=== PATIENT | male | born 1955 | race African-American/Black ===

== ENCOUNTER → 2016-06-14 | Outpatient (CLI) | payer OTHER ==
[2015-12-30 09:00] VITALS: BP 115/72
[~2016-06-14] MED LIST: AMLO5TAB2 PO; ASPI81TA44 PO; CLIN300C86 PO; METO25TA4 PO; MOME13HF2 IH; Nicotine TD; PRED20TA PO; RANI150C PO; RANO500T2 PO; TRIA1TAB3 PO; VENTOLIN HFA18 GM IH
--- NOTE | 2016-06-14 12:05 | RAD ---
CT chest without IV contrast History: Abnormal chest radiograph. Comparison: Chest radiograph December 27, 2015. Technique: Helical CT of the chest was performed without intravenous contrast. Axial, sagittal, and coronal reconstructions were obtained. One or more of the following individualized dose reduction techniques were utilized for the study: Automated exposure control Adjustment of mA and/or kV according to patient's size Use of iterative reconstruction technique. Findings: Thyroid is heterogeneous and appears enlarged. Trachea and mainstem bronchi appear patent. No mediastinal lymphadenopathy is seen. Thoracic aorta has normal caliber. No pericardial thickening is appreciated. Cardiac chambers appear appropriate in size. Mild paraseptal emphysematous changes of lungs are seen. No acute airspace disease is seen. No pneumothorax or pleural effusion is identified. There is partially calcified right lateral pleural thickening at the lower hemithorax. There is a small 5 mm soft tissue pulmonary nodule versus focal pleural thickening involving the left major fissure (axial image 45). Impression: 1. Mild paraseptal emphysema. 2. Partially calcified right pleural thickening at the lateral right lung base. 3. 5 mm soft tissue pulmonary nodule versus focal pleural thickening of the major fissure. Recommend Fleischner Society guidelines regarding follow-up. Fleischner Society recommendations for the follow up and management of nodules smaller than 8 mm detected incidentally at [facility], 2005 Nov;237(2):395-400 Note - Newly detected indeterminate nodule in persons 35 years of age or older. High-Risk Patient: (History of smoking or of other known risk factors) 4 mm or less: f/u CT at 12 months; if unchanged, no further f/u 4-6 mm: f/u at 6-12 months and 18-24 months if unchanged 6-8 mm: Initial f/u at 3-6 months, then 9-12 months and 24 months if unchanged 8 mm or greater: Same as Low-Risk patient
== END | disposition home or self-care (01) ==
LOC: CT 11:02
PROVIDERS: ATTEND Internal Medicine Pulmonary Disease
DX: R91.8 Other nonspecific abnormal finding of lung field (principal); E04.9 Nontoxic goiter, unspecified
CPT/HCPCS: 71250

== ENCOUNTER 2016-12-23 09:23 | Inpatient (IN) | payer OTHER ==
[~2016-12-23] VITALS: Ht 185.4 cm; Wt 66.0 kg
[~2016-12-23 09:23] MED LIST changes: +CLIN300C8 PO; -CLIN300C86 PO
[2016-12-23] MEDS ORDERED: IPRATRPIUM/ALBUTEROL 0.5/2.5MG 3 ML NEBU. NEB ONE (10:00)
[2016-12-23] MEDS ORDERED: predniSONE 20 MG TABLET PO ONE (10:00)
--- NOTE | 2016-12-23 10:01 | PHYS DOC ---
Past Medical History Past Medical History: Asthma, COPD, Hypertension, Other Additional Past Medical Histor: chronic Lt.shoulder pain Past Surgical History: Other Additional Past Surgical Histo: hernia,lt.middle finger,lt.knee Alcohol Use: Heavy Drug Use: Cocaine, Marijuana Social History Narrative: "ANYTHING I CAN" Adult General Chief Complaint Chief Complaint: SHORTNESS OF BREATH HPI HPI Patient is a 61 year old male presents to the emergency department wit a history of SOA and wheezing for the last 2-3 days. Patient states he has been using his nebulizer machine at home with minimal relief. Patient denies fever, chills, nausea or vomiting. Patient states he has hx of asthma. Review of Systems Review of Systems Constitutional: Denies fever or chills [] Eyes: Denies change in visual acuity, redness, or eye pain [] HENT: Denies nasal congestion or sore throat [] Respiratory: Denies cough. C/o wheezing and SOA Cardiovascular: No additional information not addressed in HPI [] GI: Denies abdominal pain, nausea, vomiting, bloody stools or diarrhea [] : Denies dysuria or hematuria [] Musculoskeletal: Denies back pain or joint pain [] Integument: Denies rash or skin lesions [] Neurologic: Denies headache, focal weakness or sensory changes [] Endocrine: Denies polyuria or polydipsia [] Current Medications Current Medications Current Medications Medications (Trade) Dose Ordered Sig/Bertha Start Time Stop Time Status Last Admin Dose Admin Albuterol Sulfate (Ventolin Neb Soln) 2.5 mg 1X ONCE 12/23/16 11:00 12/23/16 11:01 DC 12/23/16 11:11 2.5 MG Albuterol/ Ipratropium (Duoneb) 3 ml 1X ONCE 12/23/16 10:00 12/23/16 10:01 DC 12/23/16 10:05 3 ML Prednisone (Prednisone) 40 mg 1X ONCE 12/23/16 10:00 12/23/16 10:01 DC 12/23/16 10:07 40 MG Allergies Allergies Allergies Coded Allergies Type Severity Reaction Last Updated Verified Penicillins Allergy Severe SOB/STOPS BREATHING 03/19/15 Yes Physical Exam Physical Exam Constitutional: Well developed, well nourished, no acute distress, non-toxic appearance. [] HENT: Normocephalic, atraumatic, bilateral external ears normal, oropharynx moist, no oral exudates, nose normal. [] Eyes: PERRLA, EOMI, conjunctiva normal, no discharge. [] Neck: Normal range of motion, no tenderness, supple, no stridor. [] Cardiovascular:Heart rate regular rhythm, no murmur [] Lungs & Thorax: Bilateral breath sounds with wheezes noted throughout Skin: Warm, dry, no erythema, no rash. [] Back: No tenderness Extremities: No tenderness, no cyanosis, no clubbing, ROM intact, no edema. [] Neurologic: Alert and oriented X 3, normal motor function, normal sensory function, no focal deficits noted. [] Psychologic: Affect normal, judgement normal, mood normal. [] Current Patient Data Vital Signs Vital Signs Date Time Temp Pulse Resp B/P (MAP) Pulse Ox O2 Delivery O2 Flow Rate FiO2 12/23/16 11:11 92 Nasal Cannula 2.0 12/23/16 09:30 97.6 92 28 176/104 (128) 97.6 EKG EKG [] Radiology/Procedures Radiology/Procedures [] Course & Med Decision Making Course & Med Decision Making Pertinent Labs and Imaging studies reviewed. (See chart for details) Patient with O2 at 90% on RA patient was placed on O2 at 2 liters with saturation increased to 95% Patient has been provided with 2 respiratory treatments here in the emergency department. Provided with prednisone. Continues to have wheezes. Spoke with Dr. Ceja in regards to admission for this patient for respiratory treatments and steroids. He agrees with treatment regimen at this time. Patient will be placed in as inpatient. Orders have been placed into the computer. [] Dragon Disclaimer Dragon Disclaimer This electronic medical record was generated, in whole or in part, using a voice recognition dictation system. Departure Departure Impression: Primary Impression: Asthma exacerbation Disposition: ADMITTED INPATIENT Admitting Physician: Deacon Ceja Condition: STABLE Referrals: RASHID GONCALVES MD (PCP) YUN RAYA PROPERTY ADMINISTRATOR Dec 23, 2016 10:01
--- NOTE | 2016-12-23 10:23 | RAD ---
Indication wheezing. AP views of the chest were obtained. Comparison is made to an examination one year ago. There are probable background changes of emphysema or fibrosis. Scarring at the right costophrenic angle is noted similar to the previous exam. No consolidated pneumonia is seen. There is no pleural fluid or pneumothorax. There is a possible well-defined nodule in the left upper lobe. It may be artifactual. IMPRESSION: Chronic changes. No acute finding. Possible small nodule in the left lung. Follow-up imaging should be considered
[2016-12-23] MEDS ORDERED: ALBUTEROL SULFATE 2.5 MG/3 ML NEBU. NEB ONE (11:00)
[2016-12-23] MEDS ORDERED: ALBUTEROL SULFATE 2.5 MG/3 ML NEBU. NEB PRN (11:30)
[2016-12-23 11:58] LABS: BASO % 0 % (0-3); EOS % 1 % (0-3); HEMATOCRIT 41.5 % (39.0-53.0); HEMOGLOBIN 13.7 g/dL (13.0-17.5); LYMPH # 1.4 x10^3/uL (1.0-4.8); LYMPH % 10 % (24-48); MEAN CORPUSCULAR HEMOGLOBIN 31 pg (25-35); MEAN CORPUSCULAR HGB CONC 33 g/dL (31-37); MEAN CORPUSCULAR VOLUME 93 fL (79-100); MONO % 2 % (0-9); NEUT % 86 % (31-73); PLATELET COUNT 251 x10^3/uL (140-400); RED BLOOD COUNT 4.44 x10^6/uL (4.30-5.70); RED CELL DISTRIBUTION WIDTH 15.7 % (11.5-14.5); WHITE BLOOD COUNT 13.1 x10^3/uL (4.0-11.0)
[2016-12-23] MEDS: IPRATRPIUM/ALBUTEROL 0.5/2.5MG 3 ML NEBU. NEB SCH ×2 (12:00→16:11)
[2016-12-23 12:08] LABS: CALCIUM 9.4 mg/dL (8.5-10.1); CREATININE 1.2 mg/dL (0.7-1.3); GFR 74.7
[2016-12-23 12:10] VITALS: BP_SYST 132; BP_SYST 141; BP_DIAS 90; BP_DIAS 95
[2016-12-23 12:14] LABS: ALBUMIN 3.7 g/dL (3.4-5.0); ALBUMIN/GLOBULIN RATIO 1.1 (1.0-1.7); TOTAL BILIRUBIN 0.8 mg/dL (0.2-1.0); TOTAL PROTEIN 7.2 g/dL (6.4-8.2)
[2016-12-23 12:27] LABS: % EOS 1 % (0-5); PLT ESTIMATE ADEQUATE (ADEQUATE)
[2016-12-23] MEDS ORDERED: ALPR0.254 PO (12:48)
[2016-12-23] MEDS ORDERED: NICO1PAT21 TP (12:48)
[2016-12-23] MEDS ORDERED: HYDR-2758 PO (12:48)
[2016-12-23] MEDS ORDERED: PANT40TA5 PO (12:48)
[2016-12-23] MEDS ORDERED: NITR0.4T22 SL (12:48)
[2016-12-23] MEDS ORDERED: DIPH25CA58 PO (12:48)
[2016-12-23] MEDS ORDERED: METO25TA9 PO (12:48)
[2016-12-23 14:30] VITALS: BP 132/83
[2016-12-23] MEDS ORDERED: NITROGLYCERIN SUBLINGUAL 0.4 MG BOTTLE OF 25. SL PRN (14:45)
[2016-12-23] MEDS ORDERED: HYDROcodone/APAP 5/325MG 1 TAB TABLET PO PRN (14:45)
[2016-12-23] MEDS ORDERED: diphenhydrAMINE HCL 25 MG CAPSULE PO PRN (14:45)
[2016-12-23] MEDS: ENOXAPARIN 40 MG/0.4 ML SYRINGE. SQ SCH (15:38)
[2016-12-23] MEDS ORDERED: ALBUTEROL SULFATE 2.5 MG/3 ML NEBU. NEB SCH (16:00)
--- NOTE | 2016-12-23 18:49 | PDOC ---
Provider Note Provider Note H&P dictated # [id number] HAIM LEE MD Dec 23, 2016 18:49
[2016-12-23 19:00] VITALS: BP 129/85
[2016-12-23] MEDS: BUDESONIDE 0.5 MG/2 ML NEBU. NEB SCH (19:09)
[2016-12-23] MEDS: ALBUTEROL SULFATE 2.5 MG/3 ML NEBU. NEB PRN (19:09)
[2016-12-23] MEDS: RANOLAZINE 500 MG TAB.ER.12H PO SCH (20:49)
[2016-12-23] MEDS: ALPRAZolam 0.25 MG TABLET PO SCH (20:49)
[2016-12-23] MEDS ORDERED: FAMOTIDINE 20 MG TABLET. PO PRN (21:00)
--- NOTE | 2016-12-23 21:52 | HP ---
ADMIT DATE: 12/23/2016 HISTORY OF PRESENT ILLNESS: This is a 61-year-old -Citizen Of [place] male who presented to the Emergency Room because of shortness of breath and wheezing that he attributes to the weather. He has been trying to use his nebulizer at home, but getting little relief and quite dyspneic. He likes to sit outside in the garage for a little bit of time and then come inside. He thinks that likely is what contributed to his exacerbation. PAST MEDICAL HISTORY: COPD, asthma, depression, anxiety and hypertension. PAST SURGICAL HISTORY: Right knee laceration repair and normal left heart catheterization on 12/29/2015 without significant coronary artery disease. He has had a past lower right compound fracture of his leg and a hernia repair. FAMILY HISTORY: His mother is . His father is from cancer and he has a strong family history of hypertension and diabetes. SOCIAL HISTORY: He bums a few cigarettes, smokes occasionally. He is wearing a nicotine patch to help him quit. He lives with his spouse, but is disabled. He occasionally drinks, denies bingeing. ALLERGIES: HE HAS ALLERGY TO PENICILLIN. IT CAUSES SHORTNESS OF BREATH. HOME MEDICATIONS: He was started on a new blood pressure pill recently that was likely BiDil. It caused him to have a headache and he was told not to go out in the sun with it. He filled that at ____, but he has not been taking it routinely. He also has Ventolin HFA, alprazolam 0.25 mg t.i.d., aspirin 81 daily, Benadryl p.r.n. itching, hydrocodone APAP 5/325 one q. 6 hours p.r.n. pain, metoprolol 25 mg daily, Dulera 100/5 two puffs daily, Nicoderm CQ 21 mg patch daily, nitroglycerin 0.4 mg sublingual p.r.n. chest pain, pantoprazole 40 mg daily, ranitidine 150 mg b.i.d. and Ranexa 500 mg b.i.d. REVIEW OF SYSTEMS: GENERAL: He denies any chest pain. PULMONARY: As above. HEENT: He wears glasses and is able to see adequately with them, but he does not drive because of his underlying disabilities. He was seen in the office back in July with a foot ulcer on the right foot and had home health and it healed. He is ambulatory normally without assistance, despite his history of trauma. He denies nausea, vomiting or change in bowels. He has not had any urinary tract symptoms. Muscles are positive for cramping that has been occurring quite frequently here lately. PHYSICAL EXAMINATION: VITAL SIGNS: Blood pressure is a little elevated at 141/95, pulse is 80, respiratory rate is 20, oxygen on 2 liters nasal cannula is 96%. HEENT: He is wearing his glasses and sees adequately with them on, able to watch TV. Ocular muscles are intact. Mucous membranes are moist. NECK: Supple, no oral lesions are noted. HEART: Regular rate and rhythm. LUNGS: Some wheezes on the left side anteriorly with expiration are noted, but otherwise are clear. ABDOMEN: Soft, nondistended, nontender. EXTREMITIES: He moves them all well without any significant abnormal range of motion. He is ambulatory with a normal gait. His muscles are nontender to palpate. There are no joint effusions. There is no bruising or skin lesions. NEUROLOGIC: He is alert and oriented with a normal mood and affect and he is not in any respiratory distress at this time. He is wearing nasal cannula oxygen and has a peripheral IV in his right arm that does cause some discomfort when he bends that arm ____ antecubital fossa. LABORATORY DATA: White count is 13.1, hemoglobin is 13.7, hematocrit 41.5, platelets 251. Chemistries, electrolytes are normal including his CO2 and his anion gap. His BUN is 13, creatinine is 1.2 with an EGFR of 74, calcium is 9.4. Liver enzymes are normal. Proteins are normal. Chest x-ray shows possible small nodule in the left lung and recommends followup imaging. There are some background changes of emphysema/fibrosis. There is some scarring at the right costophrenic angle that is similar to previous exam. The nodule appears to be in the left upper lobe and may be artifactual. ASSESSMENT: 1. Acute chronic obstructive pulmonary disease exacerbation. 2. Chronic obstructive pulmonary disease. 3. Hypertension. 4. Depression/anxiety. PLAN: He is admitted. His breathing is already improved and will remain on his neb treatments, oxygen and home meds. He is getting Pulmicort nebulized also for steroid and he may need that at home. We will continue his nicotine patch and avoid smoking. His blood pressure will be monitored. We may need to resume his new medication if we can confirm its name. W Massiel LEE MD DR: BELLA/albino JOB#: [id number] / [id number]
[2016-12-23 23:00] VITALS: BP 139/89
[2016-12-24] MEDS: IPRATRPIUM/ALBUTEROL 0.5/2.5MG 3 ML NEBU. NEB SCH ×4 (00:25→19:38)
--- NOTE | 2016-12-24 00:58 | ACF ---
Admission Forms Criteria ASTHMA Clinical Indications for Admission to Inpatient Care (Place 'X' for any and all applicable criteria): Admission is indicated for ANY ONE of the following (1)(2)(3)(4)(5): [ ]I. Absent or markedly diminished breath sounds (silent chest) [ ]II. Oxygen saturation < 92% [ ]III. PaCO2 = / > 42 mm Hg (5.6 kPa) [ ]IV. Peak expiratory flow rate < 40% of predicted or personal best after treatment. [ ]V. Peak expiratory flow rate < 33% of predicted or personal before after treatment [ ]. Change in mental status [ ]VII. Ventilatory support required [ ]VIII. PaO2 < 60 mm Hg (8.0 kPa) [ ]IX. Cyanosis [ ]X. Cardiac dysrhythmia (e.g., bradycardia) [ ]XI. Hemodynamic instability [ ]XII. Radiographic evidence of complication requiring inpatient treatment (e.g., pneumonia, pneumothorax) [X]XIII. Inpatient admission required rather than observation care (also use Asthma: Observation Care guideline as appropriate) because of ANY ONE of the following: [ ]a) Respiratory finding that is severe or persistent (eg, dyspnea, tachypnea, accessory muscle use) [ ]b) Airflow measurements less than 60% of predicted or personal best that persist (e.g., over 24 hours) or worsen despite treatments [X]c) Supplemental oxygen or respiratory treatments for over 24 hours that are performable only in acute inpatient setting [ ]d) Other condition, treatment or monitoring requiring inpatient admission. Extended stay beyond goal length of stay may be needed for (26)(27)(28): [ ]a) Severe respiratory failure (23) (29) (30) [ ]b) Secondary causes and complications (25) [ ]c) Status asthmaticus [ ]d) Chronic obstructive asthma [ ]e) Older patients (29) [ ]f) Slow resolution [ ]g) Clinically significant exacerbation of comorbidities (eg, aur[place]. heart failure, atrial fibrillation) The original [employer] content created by [employer] has been revised. The portions of the content which have been revised are identified through the use of italic text or in bold, and [facility] [employer] has neither reviewed nor approved the modified material. All other unmodified content is copyright [employer] [facility] Please see references footnoted in the original [facility] edition 2016 Admission Criteria Met?: Yes SHAHLA SINHA Dec 24, 2016 00:58
[2016-12-24 03:00] VITALS: BP 141/85
[2016-12-24 05:08] LABS: BASO % 1 % (0-3); EOS % 2 % (0-3); HEMATOCRIT 41.1 % (39.0-53.0); HEMOGLOBIN 13.4 g/dL (13.0-17.5); LYMPH % 28 % (24-48); MEAN CORPUSCULAR HEMOGLOBIN 31 pg (25-35); MEAN CORPUSCULAR HGB CONC 33 g/dL (31-37); MEAN CORPUSCULAR VOLUME 94 fL (79-100); MONO % 8 % (0-9); NEUT % 61 % (31-73); PLATELET COUNT 225 x10^3/uL (140-400); RED BLOOD COUNT 4.37 x10^6/uL (4.30-5.70); RED CELL DISTRIBUTION WIDTH 15.6 % (11.5-14.5); WHITE BLOOD COUNT 7.1 x10^3/uL (4.0-11.0)
[2016-12-24 05:36] LABS: CALCIUM 9.5 mg/dL (8.5-10.1); CREATININE 1.1 mg/dL (0.7-1.3); GFR 82.6; POTASSIUM 3.9 mmol/L (3.5-5.1)
[2016-12-24 07:01] VITALS: BP 140/97
[2016-12-24] MEDS: BUDESONIDE 0.5 MG/2 ML NEBU. NEB SCH ×2 (07:44→19:39)
[2016-12-24] MEDS: ASPIRIN CHEWABLE 81 MG TABLET. PO SCH (08:10)
[2016-12-24] MEDS: PANTOPRAZOLE 40 MG TABLET.DR. PO SCH (08:10)
[2016-12-24] MEDS: RANOLAZINE 500 MG TAB.ER.12H PO SCH ×2 (08:10→20:29)
[2016-12-24] MEDS: ALPRAZolam 0.25 MG TABLET PO SCH ×3 (08:11→20:30)
[2016-12-24] MEDS: METOPROLOL SUCC 24HR ER 25 MG TAB.ER.24H. PO SCH (08:11)
[2016-12-24] MEDS: NICOTINE 21MG PATCH. TD SCH (08:11)
[2016-12-24] MEDS ORDERED: predniSONE 20 MG TABLET PO ONE (09:00)
[2016-12-24 11:01] VITALS: BP 140/88
[2016-12-24] MEDS: ENOXAPARIN 40 MG/0.4 ML SYRINGE. SQ SCH (14:44)
[2016-12-24 15:00] VITALS: BP 136/89
[2016-12-24] MEDS: ALBUTEROL SULFATE 2.5 MG/3 ML NEBU. NEB PRN (16:13)
--- NOTE | 2016-12-24 18:10 | PDOC ---
PROGRESS NOTES Subjective Worse today, more wheezing, muscle pain and crams better though, minimal activity but slept well overnight Objective Afebrile General: tired, A&O Heart: RRR, no M Lungs: bilateral wheezes Abd: soft, ND/NT Ext: no C/C/E skin: good turgor Vital Signs Vital Signs Date Time Temp Pulse Resp B/P (MAP) Pulse Ox O2 Delivery O2 Flow Rate FiO2 12/24/16 16:14 Nasal Cannula 2.0 12/24/16 15:00 98.3 86 18 136/89 (105) 94 98.3 I & O Intake and Output 12/24/16 07:00 Intake Total 550 ml Balance 550 ml Intake Oral 550 ml # Voids 5 Assessment and Plan 1. Asthma exacerbation - cont neb tx, add solumedrol 2. Acute chronic obstructive pulmonary disease exacerbation - continue neb tx add solumedrol 3. Chronic obstructive pulmonary disease. 4. Hypertension. 5. Depression/anxiety. Problems: HAIM LEE MD Dec 24, 2016 18:10
[2016-12-24] MEDS ORDERED: predniSONE 10 MG TABLET PO ONE (18:30)
[2016-12-24 19:36] VITALS: BP 139/92
[2016-12-24 22:34] VITALS: BP 129/78
[2016-12-25] MEDS: IPRATRPIUM/ALBUTEROL 0.5/2.5MG 3 ML NEBU. NEB SCH ×3 (00:04→11:27)
[2016-12-25 02:13] VITALS: BP 158/114
[2016-12-25 07:00] VITALS: BP 146/84
[2016-12-25] MEDS: BUDESONIDE 0.5 MG/2 ML NEBU. NEB SCH (07:31)
[2016-12-25] MEDS: ALPRAZolam 0.25 MG TABLET PO SCH ×2 (08:00→12:59)
[2016-12-25] MEDS: ASPIRIN CHEWABLE 81 MG TABLET. PO SCH (08:00)
[2016-12-25] MEDS: NICOTINE 21MG PATCH. TD SCH ×2 (08:00→10:06)
[2016-12-25] MEDS: METOPROLOL SUCC 24HR ER 25 MG TAB.ER.24H. PO SCH (08:00)
[2016-12-25] MEDS: RANOLAZINE 500 MG TAB.ER.12H PO SCH (08:00)
[2016-12-25] MEDS: PANTOPRAZOLE 40 MG TABLET.DR. PO SCH (08:00)
[2016-12-25 10:42] LABS: ALBUMIN 3.7 g/dL (3.4-5.0); CALCIUM 9.2 mg/dL (8.5-10.1); CREATININE 1.1 mg/dL (0.7-1.3); GFR 82.6; POTASSIUM 4.4 mmol/L (3.5-5.1); TOTAL BILIRUBIN 0.2 mg/dL (0.2-1.0); TOTAL PROTEIN 7.5 g/dL (6.4-8.2)
[2016-12-25 11:00] VITALS: BP 133/94
[2016-12-25] MEDS: ENOXAPARIN 40 MG/0.4 ML SYRINGE. SQ SCH (13:01)
[2016-12-25] MEDS ORDERED: METH4TAB2 PO (14:03)
[2016-12-25] MEDS ORDERED: MOME13HF IH (14:03)
[2016-12-25] MEDS ORDERED: ALPR0.254 PO (14:03)
--- NOTE | 2016-12-25 14:09 | PDOC ---
Provider Note Provider Note discharge dictated #[id number] HAIM LEE MD Dec 25, 2016 14:09
--- NOTE | 2016-12-25 21:44 | DS ---
DATE OF DISCHARGE: 12/25/2016 ADMISSION DIAGNOSIS: Acute asthma exacerbation. DISCHARGE DIAGNOSIS: Acute asthma exacerbation. ASSOCIATED DIAGNOSES: 1. Asthma. 2. Chronic obstructive pulmonary disease. 3. Hypertension. 4. Gastroesophageal reflux disease. 5. History of substance abuse. 6. Mental illness. CONSULTS: None. PROCEDURES: None. HISTORY AND HOSPITAL COURSE: This is a 61-year-old -[place] male who presented to the Emergency Room because of worsening dyspnea despite home neb treatments. He has had Dulera at home 100/5 and was taking that. He had been out in the heat with his dog and that seemed to exacerbate his symptoms. His pulse ox in the Emergency Room was 90%. He does not normally use oxygen at home, does not have chronic respiratory failure. He was given Solu-Medrol and neb treatments and subsequently admitted. He was switched to budesonide nebulized along with his neb treatments and initially improved, but then started wheezing more. He was given a large dose of prednisone last evening that caused him some confusion overnight. He was also resumed on alprazolam while here for anxiety and it caused some drowsiness. His lungs are back to baseline. He is no longer wheezing. He is up and about ambulating without any shortness of breath. He has not produced any significant amounts of sputum. There is no discoloration to it today. He is afebrile and wanting to go home. He feels like he can stay ____ the heat and avoid being out with his dog and then anticipate future problems. PHYSICAL EXAMINATION: HEART: Regular. LUNGS: Clear. ABDOMEN: Soft. NEURO: He is alert and oriented now. He is up and about ambulating without any oxygen. DISCHARGE MEDICATIONS: He will be discharged home on new prescriptions, alprazolam 0.25 mg 1 daily at bedtime as needed, Medrol Dosepak #1 as directed, which he will start tomorrow, Dulera is increased to 200 mcg/5, 2 puffs b.i.d., he will continue his albuterol both nebulized and inhaled q.i.d. p.r.n. He will continue aspirin 81 mg daily, diphenhydramine 25 mg p.r.n., hydrocodone ____ 5/325 q.i.d. p.r.n., but he has not needed any here. Prescription was not written. Metoprolol succinate 25 mg daily, nicotine 21 mg patch daily, pantoprazole 40 mg daily, and Ranexa 500 mg b.i.d. DIET: Will be as tolerated. ACTIVITY: As tolerated. FOLLOWUP: He will follow up in the office with me or Dr. Osorio within 1-2 weeks. W Massiel LEE MD DR: BELLA/albino JOB#: [id number] / [id number]
== END 2016-12-25 16:30 | disposition home or self-care (01) | DRG 191 ==
LOC: ER 09:23 → 6 SOUTH 10:48
PROVIDERS: ADMIT Family Medicine; ATTEND Family Medicine
DX: J44.1 Chronic obstructive pulmonary disease with (acute) exacerbation (principal); J45.901 Unspecified asthma with (acute) exacerbation; F32.9 Major depressive disorder, single episode, unspecified; F41.9 Anxiety disorder, unspecified; I10 Essential (primary) hypertension; K21.9 Gastro-esophageal reflux disease without esophagitis; F17.200 Nicotine dependence, unspecified, uncomplicated; F19.10 Other psychoactive substance abuse, uncomplicated; F14.90 Cocaine use, unspecified, uncomplicated; Z82.49 Family history of ischemic heart disease and other diseases of the circulatory system; Z83.3 Family history of diabetes mellitus; Z88.0 Allergy status to penicillin; Z79.899 Other long term (current) drug therapy; Z79.1 Long term (current) use of non-steroidal anti-inflammatories (NSAID); Z79.82 Long term (current) use of aspirin
CPT/HCPCS: 36415; 71010; 80048; 80053; 85007; 85027; 94250; 94640; 94760; J1650; J7512; J7613; J7620; J7626; 99285-25; A6539

== ENCOUNTER → 2017-01-10 | Outpatient (CLI) | payer OTHER ==
[2016-12-25 11:00] VITALS: BP 133/94
[~2017-01-10] MED LIST changes: +ALPR0.254 PO; +DIPH25CA58 PO; +HYDR-2758 PO; +METH4TAB2 PO; +METO25TA9 PO; +MOME13HF IH; +NICO1PAT21 TP; +NITR0.4T22 SL; +PANT40TA5 PO
== END | disposition home or self-care (01) ==
LOC: PMGWOUND 08:55
PROVIDERS: ATTEND Emergency Medicine Undersea and Hyperbaric Medicine
DX: T81.31XD Disruption of external operation (surgical) wound, not elsewhere classified, subsequent encounter (principal); F41.9 Anxiety disorder, unspecified; J44.9 Chronic obstructive pulmonary disease, unspecified; I10 Essential (primary) hypertension; F14.90 Cocaine use, unspecified, uncomplicated; K21.9 Gastro-esophageal reflux disease without esophagitis; F32.9 Major depressive disorder, single episode, unspecified; J45.909 Unspecified asthma, uncomplicated; F19.10 Other psychoactive substance abuse, uncomplicated; Z88.0 Allergy status to penicillin; Z79.82 Long term (current) use of aspirin; Y83.8 Other surgical procedures as the cause of abnormal reaction of the patient, or of later complication, without mention of misadventure at the time of the procedure
CPT/HCPCS: 97597; 97598

== ENCOUNTER 2017-06-13 13:14 | Emergency (ER) | payer OTHER | END 2017-06-13 15:24 | disposition home or self-care (01) | LOC: ER 13:14 | DX: S63.502A Unspecified sprain of left wrist, initial encounter (principal); I10 Essential (primary) hypertension; F12.10 Cannabis abuse, uncomplicated; J44.9 Chronic obstructive pulmonary disease, unspecified; F14.10 Cocaine abuse, uncomplicated; F10.10 Alcohol abuse, uncomplicated; Z88.0 Allergy status to penicillin; X50.9XXA Other and unspecified overexertion or strenuous movements or postures, initial encounter; Y93.89 Activity, other specified; Y99.8 Other external cause status; Y92.89 Other specified places as the place of occurrence of the external cause | CPT/HCPCS: 29125; 73090; 73110; 99284-25 ==

== ENCOUNTER 2018-06-07 10:33 | Emergency (ER) | payer OTHER ==
[~2018-06-07] VITALS: Ht 185.4 cm; Wt 72.6 kg
[~2018-06-07 10:33] MED LIST changes: -AMLO5TAB2 PO; +AMLO5TAB7 PO; -ASPI81TA44 PO; +ASPI81TA59 PO; -HYDR-2758 PO; +HYDR-2761 PO; +IBUP-1060 PO; +METO-239 PO; -METO25TA9 PO; +RANI150T2 PO
[2018-06-07] MEDS ORDERED: IV NORMAL SALINE 1000ML BAG 1,000 ML IV SCH (10:51)
[2018-06-07] MEDS ORDERED: ASPIRIN CHEWABLE 81 MG TABLET. PO ONE (11:00)
[2018-06-07] MEDS ORDERED: methylPREDNISolone SOD SUCC PF 125 MG/2 ML VIAL. IV ONE (11:00)
[2018-06-07] MEDS ORDERED: IPRATRPIUM/ALBUTEROL 0.5/2.5MG 3 ML NEBU. NEB ONE (11:00)
--- NOTE | 2018-06-07 11:08 | PHYS DOC ---
Past Medical History Past Medical History: Asthma, COPD, Hypertension, Other Additional Past Medical Histor: chronic Lt.shoulder pain Past Surgical History: Other Additional Past Surgical Histo: hernia,R middle finger,lt.knee,L FINGER Smoking: Cigarettes Alcohol Use: None Drug Use: Cocaine Adult General Chief Complaint Chief Complaint: FLU SYMPTOM HPI HPI Patient is a 63-year-old -Swiss male who presents to the emergency department for evaluation. he states that "I think I'm catching a cold". He states that for the past several days, he has had nasal congestion and a cough and some shortness of breath. He also reports some left lower chest discomfort, which is worse with coughing. This has been constant for the past 2 days. He states he has had similar discomfort in the past with coughing. He denies a prior history of coronary artery disease. He does admit to a history of cocaine use, but states he has not used cocaine in over a week. He has not had any exertional chest pain. He denies any pleuritic chest pain. He has not had any fevers. His cough has been mostly nonproductive. There are no alleviating or exacerbating factors to his symptoms otherwise. Review of Systems Review of Systems Constitutional: Denies fever or chills [] Eyes: Denies change in visual acuity, redness, or eye pain [] HENT: Denies nasal congestion or sore throat [] Respiratory: Reports nonproductive cough and shortness of breath[] Cardiovascular: No additional information not addressed in HPI [] GI: Denies abdominal pain, nausea, vomiting, bloody stools or diarrhea [] : Denies dysuria or hematuria [] Musculoskeletal: Denies back pain or joint pain [] Integument: Denies rash or skin lesions [] Neurologic: Denies headache, focal weakness or sensory changes [] Endocrine: Denies polyuria or polydipsia [] All other systems were reviewed and found to be within normal limits, except as documented in this note. Current Medications Current Medications Current Medications Medications (Trade) Dose Ordered Sig/Bertha Start Time Stop Time Status Last Admin Dose Admin Albuterol/ Ipratropium (Duoneb) 3 ml 1X ONCE 06/07/18 11:00 06/07/18 11:01 DC 06/07/18 11:22 3 ML Aspirin (Children'S Aspirin) 324 mg 1X ONCE 06/07/18 11:00 06/07/18 11:01 DC 06/07/18 11:10 324 MG Methylprednisolone Sodium Succinate (SOLU-Medrol 125MG VIAL) 125 mg 1X ONCE 06/07/18 11:00 06/07/18 11:01 DC 06/07/18 11:10 125 MG Sodium Chloride 1,000 ml @ 1,000 mls/hr Q1H 06/07/18 10:51 06/07/18 11:50 DC 06/07/18 11:11 1,000 MLS/HR Allergies Allergies Allergies Coded Allergies Type Severity Reaction Last Updated Verified Penicillins Allergy Severe SOB/STOPS BREATHING 03/19/15 Yes Physical Exam Physical Exam PHYSICAL EXAM: CONSTITUTIONAL: Well developed, well nourished HEAD: normocephalic, atraumatic EENT: PERRL, EOMI. Conjunctivae normal color, sclerae non-icteric; moist mucous membranes. NECK: Supple, non-tender; no meningismus. LUNGS: There are scattered expiratory wheezes in all lung nair, with mildly diminished air movement, breathing even and unlabored. HEART: Regular rate and rhythm, no murmur CHEST: No deformity; non-tender ABDOMEN: The abdomen is soft, and non-tender, no masses or bruits. EXTREM: Normal ROM; no deformity, no calf tenderness. Normal pulses palpable in all extremities. There is no pedal edema. SKIN: No rash; no diaphoresis NEURO: Alert; normal speech and cognition; CN's grossly intact; strength grossly intact without focal deficit. BACK: No CVA TTP. Current Patient Data Vital Signs Vital Signs Date Time Temp Pulse Resp B/P (MAP) Pulse Ox O2 Delivery O2 Flow Rate FiO2 06/07/18 12:10 84 133/83 (100) 94 Room Air 06/07/18 10:44 97.6 18 97.6 Lab Values Laboratory Tests Test 06/07/18 10:40 06/07/18 10:47 06/07/18 11:50 Influenza Type A Antigen Negative (NEGATIVE) Influenza Type B Antigen Negative (NEGATIVE) White Blood Count 7.0 x10^3/uL (4.0-11.0) Red Blood Count 4.40 x10^6/uL (4.30-5.70) Hemoglobin 13.7 g/dL (13.0-17.5) Hematocrit 40.8 % (39.0-53.0) Mean Corpuscular Volume 93 fL (79-100) Mean Corpuscular Hemoglobin 31 pg (25-35) Mean Corpuscular Hemoglobin Concent 34 g/dL (31-37) Red Cell Distribution Width 14.8 % (11.5-14.5) H Platelet Count 260 x10^3/uL (140-400) Neutrophils (%) (Auto) 71 % (31-73) Lymphocytes (%) (Auto) 20 % (24-48) L Monocytes (%) (Auto) 6 % (0-9) Eosinophils (%) (Auto) 2 % (0-3) Basophils (%) (Auto) 1 % (0-3) Neutrophils # (Auto) 5.0 x10^3uL (1.8-7.7) Lymphocytes # (Auto) 1.4 x10^3/uL (1.0-4.8) Monocytes # (Auto) 0.4 x10^3/uL (0.0-1.1) Eosinophils # (Auto) 0.1 x10^3/uL (0.0-0.7) Basophils # (Auto) 0.1 x10^3/uL (0.0-0.2) Sodium Level 144 mmol/L (136-145) Potassium Level 3.8 mmol/L (3.5-5.1) Chloride Level 108 mmol/L (98-107) H Carbon Dioxide Level 26 mmol/L (21-32) Anion Gap 10 (6-14) Blood Urea Nitrogen 18 mg/dL (8-26) Creatinine 1.0 mg/dL (0.7-1.3) Estimated GFR (Cockcroft-Gault) 91.6 BUN/Creatinine Ratio 18 (6-20) Glucose Level 95 mg/dL (70-99) Calcium Level 9.0 mg/dL (8.5-10.1) Total Bilirubin 0.4 mg/dL (0.2-1.0) Aspartate Amino Transferase (AST) 11 U/L (15-37) L Alanine Aminotransferase (ALT) 18 U/L (16-63) Alkaline Phosphatase 89 U/L (46-116) Creatine Kinase 130 U/L (39-308) Creatine Kinase MB (Mass) 1.5 ng/mL (0.0-3.6) Creatine Kinase MB Relative Index 1.2 % (0-4) Troponin I Quantitative < 0.017 ng/mL (0.000-0.055) JT-Eis-X-Type Natriuretic Peptide 76 pg/mL (0-124) Total Protein 7.4 g/dL (6.4-8.2) Albumin 3.6 g/dL (3.4-5.0) Albumin/Globulin Ratio 0.9 (1.0-1.7) L Urine Color Yellow Urine Clarity Clear Urine pH 6.5 Urine Specific [place] 1.020 Urine Protein Negative mg/dL (NEG-TRACE) Urine Glucose (UA) Negative mg/dL (NEG) Urine Ketones (Stick) Negative mg/dL (NEG) Urine Blood Negative (NEG) Urine Nitrite Negative (NEG) Urine Bilirubin Negative (NEG) Urine Urobilinogen Dipstick 1.0 mg/dL (0.2 mg/dL) Urine Leukocyte Esterase Negative (NEG) Urine RBC Occ /HPF (0-2) Urine WBC Occ /HPF (0-4) Urine Squamous Epithelial Cells Occ /LPF Urine Bacteria 0 /HPF (0-FEW) Urine Mucus Mod /LPF Urine Opiates Screen Neg (NEG) Urine Methadone Screen Neg (NEG) Urine Barbiturates Neg (NEG) Urine Phencyclidine Screen Neg (NEG) Urine Amphetamine/Methamphetamine Neg (NEG) Urine Benzodiazepines Screen Neg (NEG) Urine Cocaine Screen Pos (NEG) Urine Cannabinoids Screen Pos (NEG) Urine Ethyl Alcohol Neg (NEG) Laboratory Tests 06/07/18 10:47 Laboratory Tests 06/07/18 10:47 EKG EKG [Normal sinus rhythm at a rate of 79 beats for minute, normal axis, normal intervals, poor anterior R-wave progression, lethargy hypertrophy is present, there are no acute ischemic ST/T changes.] Radiology/Procedures Radiology/Procedures [PROCEDURE: CHEST PA & LATERAL Two-view chest 06/07/2017 Clinical indications: Chest pain. COMPARISON: Chest 08/26/2017, CT chest 08/27/2017 FINDINGS: Cardiac and mediastinal silhouettes are stable. There is stable right basilar pleural thickening and pleural calcification. There is hyperexpansion of both lungs. No left pleural effusion. No pneumothorax or focal consolidation. IMPRESSION: 1. No acute cardiopulmonary abnormality. 2. Stable right costophrenic angle blunting and pleural calcification, may be due to pleural plaques from benign asbestos related pleural disease versus chronic pleural effusion with associated calcification. 3. Emphysema.] Course & Med Decision Making Course & Med Decision Making Pertinent Labs and Imaging studies reviewed. (See chart for details) [12:50 PM:Patient remains stable. Oxygen saturation is in the upper 90s on room air. I'm not highly suspicious of the patient's symptoms are related to a cardiac etiology, I suspect that he has bronchitis and upper respiratory infection with some wheezing related to his underlying asthma and cigarette use. I did discuss the possibility of further overnight observation to definitively rule out acute coronary syndrome with the patient does not think his symptoms are related to his heart either and declines further evaluation at this time. He expressed understanding of the limitation of an ER evaluation in definitively ruling out cardiac etiology, and the risks involved and undiagnosed cardiac syndrome. However the patient's symptoms are suspected to be respiratory in nature at this time. I discussed test results, the need for close follow-up, and return precautions.] Dragon Disclaimer Dragon Disclaimer This electronic medical record was generated, in whole or in part, using a voice recognition dictation system. Departure Departure Impression: Primary Impression: Bronchitis Additional Impressions: Upper respiratory infection Atypical chest pain Disposition: 01 HOME, SELF-CARE Condition: STABLE Referrals: Sylvia LEE MD (PCP) Patient Instructions: Acute Bronchitis, Asthma, Adult, Upper Respiratory Infection, Adult Scripts Albuterol Sulfate (PROAIR HFA INHALER) 8.5 Gm Hfa.aer.ad 1 PUFF INH PRN Q6HRS PRN for SHORTNESS OF BREATH, #1 INHALER 0 Refills Prov: MARY DANIELSON MD 06/07/18 Prednisone (PREDNISONE) 20 Mg Tablet 40 MG PO DAILY for 5 Days, #10 TAB Prov: MARY DANIELSON MD 06/07/18 Problem Qualifiers MARY DANIELSON MD Jun 07, 2018 11:08
[2018-06-07 11:25] LABS: BASO # 0.1 x10^3/uL (0.0-0.2); BASO % 1 % (0-3); EOS # 0.1 x10^3/uL (0.0-0.7); EOS % 2 % (0-3); HEMATOCRIT 40.8 % (39.0-53.0); HEMOGLOBIN 13.7 g/dL (13.0-17.5); LYMPH # 1.4 x10^3/uL (1.0-4.8); LYMPH % 20 % (24-48); MEAN CORPUSCULAR HEMOGLOBIN 31 pg (25-35); MEAN CORPUSCULAR HGB CONC 34 g/dL (31-37); MEAN CORPUSCULAR VOLUME 93 fL (79-100); MONO # 0.4 x10^3/uL (0.0-1.1); MONO % 6 % (0-9); NEUT % 71 % (31-73); PLATELET COUNT 260 x10^3/uL (140-400); RED CELL DISTRIBUTION WIDTH 14.8 % (11.5-14.5)
--- NOTE | 2018-06-07 11:29 | RAD ---
Two-view chest 06/07/2017 Clinical indications: Chest pain. COMPARISON: Chest 08/26/2017, CT chest 08/27/2017 FINDINGS: Cardiac and mediastinal silhouettes are stable. There is stable right basilar pleural thickening and pleural calcification. There is hyperexpansion of both lungs. No left pleural effusion. No pneumothorax or focal consolidation. IMPRESSION: 1. No acute cardiopulmonary abnormality. 2. Stable right costophrenic angle blunting and pleural calcification, may be due to pleural plaques from benign asbestos related pleural disease versus chronic pleural effusion with associated calcification. 3. Emphysema. Electronically signed by: Tremaine Malik MD (06/07/2018 11:25 AM) [id number]
[2018-06-07 11:34] LABS: GFR 91.6; POTASSIUM 3.8 mmol/L (3.5-5.1)
[2018-06-07 11:43] LABS: ALBUMIN 3.6 g/dL (3.4-5.0); ALBUMIN/GLOBULIN RATIO 0.9 (1.0-1.7); TOTAL BILIRUBIN 0.4 mg/dL (0.2-1.0); TOTAL PROTEIN 7.4 g/dL (6.4-8.2)
[2018-06-07 11:53] LABS: INFLUENZA A PATIENT NEGATIVE (NEGATIVE); INFLUENZA B PATIENT NEGATIVE (NEGATIVE)
[2018-06-07 12:08] LABS: BILIRUBIN,URINE NEGATIVE (NEG); CLARITY,URINE CLEAR; COLOR,URINE YELLOW; NITRITE,URINE NEGATIVE (NEG); PH,URINE 6.5; PROTEIN,URINE NEGATIVE (NEG-TRACE)
[2018-06-07 12:10] VITALS: BP 133/83
[2018-06-07 12:13] LABS: BARBITURATES NEG (NEG); BENZODIAZEPINES NEG (NEG); CANNABINOIDS POS (NEG); COCAINE POS (NEG); METHADONE NEG (NEG); OPIATES NEG (NEG); PHENCYCLIDINE NEG (NEG)
[2018-06-07 12:14] LABS: AMPHETAMINE/METHAMPHETAMINE NEG (NEG)
[2018-06-07 12:19] LABS: BACTERIA,URINE 0 /HPF (0-FEW); RBC,URINE OCC /HPF (0-2); SQUAMOUS EPITHELIAL CELL,UR OCC /LPF; WBC,URINE OCC /HPF (0-4)
[2018-06-07] MEDS ORDERED: PRED20TA PO (12:56)
[2018-06-07] MEDS ORDERED: ALBU2.5V8 INH (12:56)
--- NOTE | 2018-06-07 15:05 | EKG ---
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
== END 2018-06-07 13:08 | disposition home or self-care (01) ==
LOC: ER 10:33
DX: J40 Bronchitis, not specified as acute or chronic (principal); J06.9 Acute upper respiratory infection, unspecified; R07.89 Other chest pain; J44.9 Chronic obstructive pulmonary disease, unspecified; G89.29 Other chronic pain; I10 Essential (primary) hypertension; F17.210 Nicotine dependence, cigarettes, uncomplicated; Z88.0 Allergy status to penicillin
CPT/HCPCS: 36415; 71046; 80053; 80307; 81001; 82553; 83880; 84484; 85025; 87804; 93005; 94640; 96374; 99284; J2930; J7030; J7620

== ENCOUNTER → 2018-06-26 | Outpatient (CLI) | payer OTHER ==
[2018-06-07 12:10] VITALS: BP 133/83
[~2018-06-26] MED LIST changes: +ALBU2.5V8 INH
== END | disposition home or self-care (01) ==
LOC: PMGWOUND 08:03
PROVIDERS: ATTEND Emergency Medicine Undersea and Hyperbaric Medicine
DX: T81.31XD Disruption of external operation (surgical) wound, not elsewhere classified, subsequent encounter (principal); I11.0 Hypertensive heart disease with heart failure; I50.9 Heart failure, unspecified; E78.5 Hyperlipidemia, unspecified; G89.29 Other chronic pain; I25.2 Old myocardial infarction; J44.9 Chronic obstructive pulmonary disease, unspecified; Z87.891 Personal history of nicotine dependence; Z85.810 Personal history of malignant neoplasm of tongue; Y83.8 Other surgical procedures as the cause of abnormal reaction of the patient, or of later complication, without mention of misadventure at the time of the procedure
CPT/HCPCS: 99213

== ENCOUNTER 2018-12-13 15:54 | Emergency (ER) | payer MEDICAID, OTHER ==
[~2018-12-13] VITALS: Ht 185.4 cm; Wt 69.4 kg
[~2018-12-13 15:54] MED LIST changes: +AMLO5TAB10 PO; -AMLO5TAB7 PO; -PANT40TA5 PO; +PANT40TA77 PO
[2018-12-13] MEDS ORDERED: ALBUTEROL SULFATE 2.5 MG/3 ML NEBU. NEB ONE (16:45)
[2018-12-13] MEDS ORDERED: IPRATRPIUM/ALBUTEROL 0.5/2.5MG 3 ML NEBU. NEB ONE (16:45)
[2018-12-13] MEDS ORDERED: methylPREDNISolone SOD SUCC PF 125 MG/2 ML VIAL. IV ONE (16:45)
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
[2018-12-13 17:32] LABS: BASO % 1 % (0-3); EOS % 0 % (0-3); HEMOGLOBIN 15.6 g/dL (13.0-17.5); LYMPH # 1.3 x10^3/uL (1.0-4.8); LYMPH % 25 % (24-48); MEAN CORPUSCULAR HEMOGLOBIN 32 pg (25-35); MEAN CORPUSCULAR HGB CONC 34 g/dL (31-37); MEAN CORPUSCULAR VOLUME 94 fL (79-100); MONO # 0.1 x10^3/uL (0.0-1.1); MONO % 2 % (0-9); NEUT # 3.9 x10^3/uL (1.8-7.7); NEUT % 72 % (31-73); PLATELET COUNT 308 x10^3/uL (140-400); RED BLOOD COUNT 4.89 x10^6/uL (4.30-5.70); RED CELL DISTRIBUTION WIDTH 15.1 % (11.5-14.5); WHITE BLOOD COUNT 5.4 x10^3/uL (4.0-11.0)
[2018-12-13 17:56] LABS: CALCIUM 9.7 mg/dL (8.5-10.1); CREATININE 1.1 mg/dL (0.7-1.3); GFR 82.1; POTASSIUM 5.2 mmol/L (3.5-5.1)
[2018-12-13 18:01] LABS: ALBUMIN 4.4 g/dL (3.4-5.0); ALBUMIN/GLOBULIN RATIO 1.3 (1.0-1.7); TOTAL BILIRUBIN 0.4 mg/dL (0.2-1.0); TOTAL PROTEIN 7.8 g/dL (6.4-8.2)
[2018-12-13 18:31] VITALS: BP 130/85
[2018-12-13] MEDS ORDERED: PRED50TA PO (18:47)
[2018-12-13] MEDS ORDERED: DOXY100T PO (18:47)
--- NOTE | 2018-12-14 06:31 | EKG ---
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
== END 2018-12-13 19:02 | disposition home or self-care (01) ==
LOC: ER 15:54
DX: J44.1 Chronic obstructive pulmonary disease with (acute) exacerbation (principal); I10 Essential (primary) hypertension; G89.29 Other chronic pain; F12.10 Cannabis abuse, uncomplicated; F14.10 Cocaine abuse, uncomplicated; Z88.0 Allergy status to penicillin
CPT/HCPCS: 36415; 71046; 80053; 85025; 93005; 94640; 96374; 99285; J2930; J7613; J7620

== ENCOUNTER 2019-02-02 08:41 | Emergency (ER) | payer MEDICAID ==
[~2019-02-02] VITALS: Ht 185.4 cm; Wt 70.3 kg
[~2019-02-02 08:41] MED LIST changes: +DOXY100T PO; +PRED50TA PO
--- NOTE | 2019-02-02 09:41 | PHYS DOC ---
Past Medical History Past Medical History: Asthma, COPD, Hypertension, Other Additional Past Medical Histor: chronic Lt.shoulder pain; substance abuse Past Surgical History: Other Additional Past Surgical Histo: hernia,R middle finger,lt.knee,L FINGER Additional Information: 08/07 ppd Alcohol Use: Rarely Drug Use: Cocaine, Marijuana Adult General Chief Complaint Chief Complaint: SHORTNESS OF BREATH HPI HPI Patient is a 63 year old male that presents with cough, shortness of breath, congestion and runny nose. This is been ongoing since Tuesday. He has a history of COPD. Denies any pain. Review of Systems Review of Systems Constitutional: Denies fever or chills [] Eyes: Denies change in visual acuity, redness, or eye pain [] HENT: Reports nasal congestion and sore throat [] Respiratory: Reports cough and shortness of breath [] Cardiovascular: No additional information not addressed in HPI [] GI: Denies abdominal pain, nausea, vomiting, bloody stools or diarrhea [] : Denies dysuria or hematuria [] Musculoskeletal: Denies back pain or joint pain [] Integument: Denies rash or skin lesions [] Neurologic: Denies headache, focal weakness or sensory changes [] Endocrine: Denies polyuria or polydipsia [] Complete systems were reviewed and found to be within normal limits, except as documented in this note. Current Medications Current Medications Current Medications Medications (Trade) Dose Ordered Sig/Bertha Start Time Stop Time Status Last Admin Dose Admin Albuterol/ Ipratropium (Duoneb) 3 ml 1X ONCE 02/02/19 09:45 02/02/19 09:46 DC 02/02/19 09:52 3 ML Methylprednisolone Sodium Succinate (SOLU-Medrol 125MG VIAL) 125 mg 1X ONCE 02/02/19 09:45 02/02/19 09:46 DC 02/02/19 09:54 125 MG Allergies Allergies Allergies Coded Allergies Type Severity Reaction Last Updated Verified Penicillins Allergy Severe SOB/STOPS BREATHING 03/19/15 Yes Physical Exam Physical Exam Constitutional: Well developed, well nourished, no acute distress, non-toxic appearance. [] HENT: Normocephalic, atraumatic, bilateral external ears normal, oropharynx moist, no oral exudates, nose normal. [] Eyes: PERRLA, EOMI, conjunctiva normal, no discharge. [] Neck: Normal range of motion, no tenderness, supple, no stridor. [] Cardiovascular:Heart rate regular rhythm, no murmur [] Lungs & Thorax: Bilateral breath sounds wheezy in all lobes. Abdomen: Bowel sounds normal, soft, no tenderness, no masses, no pulsatile masses. [] Skin: Warm, dry, no erythema, no rash. [] Back: No tenderness, no CVA tenderness. [] Extremities: No tenderness, no cyanosis, no clubbing, ROM intact, no edema. [] Neurologic: Alert and oriented X 3, normal motor function, normal sensory function, no focal deficits noted. [] Psychologic: Affect normal, judgement normal, mood normal. [] Current Patient Data Vital Signs Vital Signs Date Time Temp Pulse Resp B/P (MAP) Pulse Ox O2 Delivery O2 Flow Rate FiO2 02/02/19 11:11 62 20 133/84 (100) 98 Room Air 02/02/19 09:23 97.8 97.8 Lab Values Laboratory Tests Test 02/02/19 09:30 White Blood Count 4.1 x10^3/uL (4.0-11.0) Red Blood Count 4.17 x10^6/uL (4.30-5.70) L Hemoglobin 13.1 g/dL (13.0-17.5) Hematocrit 39.3 % (39.0-53.0) Mean Corpuscular Volume 94 fL (79-100) Mean Corpuscular Hemoglobin 32 pg (25-35) Mean Corpuscular Hemoglobin Concent 33 g/dL (31-37) Red Cell Distribution Width 14.8 % (11.5-14.5) H Platelet Count 221 x10^3/uL (140-400) Neutrophils (%) (Auto) 32 % (31-73) Lymphocytes (%) (Auto) 54 % (24-48) H Monocytes (%) (Auto) 10 % (0-9) H Eosinophils (%) (Auto) 2 % (0-3) Basophils (%) (Auto) 1 % (0-3) Neutrophils # (Auto) 1.3 x10^3/uL (1.8-7.7) L Lymphocytes # (Auto) 2.2 x10^3/uL (1.0-4.8) Monocytes # (Auto) 0.4 x10^3/uL (0.0-1.1) Eosinophils # (Auto) 0.1 x10^3/uL (0.0-0.7) Basophils # (Auto) 0.0 x10^3/uL (0.0-0.2) Sodium Level 145 mmol/L (136-145) Potassium Level 4.3 mmol/L (3.5-5.1) Chloride Level 109 mmol/L (98-107) H Carbon Dioxide Level 31 mmol/L (21-32) Anion Gap 5 (6-14) L Blood Urea Nitrogen 11 mg/dL (8-26) Creatinine 1.2 mg/dL (0.7-1.3) Estimated GFR (Cockcroft-Gault) 74.2 BUN/Creatinine Ratio 9 (6-20) Glucose Level 92 mg/dL (70-99) Calcium Level 8.6 mg/dL (8.5-10.1) Total Bilirubin 0.5 mg/dL (0.2-1.0) Aspartate Amino Transferase (AST) 11 U/L (15-37) L Alanine Aminotransferase (ALT) 12 U/L (16-63) L Alkaline Phosphatase 86 U/L (46-116) Total Protein 6.9 g/dL (6.4-8.2) Albumin 3.5 g/dL (3.4-5.0) Albumin/Globulin Ratio 1.0 (1.0-1.7) Laboratory Tests 02/02/19 09:30 Laboratory Tests 02/02/19 09:30 EKG EKG EKG interpreted by Dr. Guero Stafford with rate of 52, NO STEMI.[] Radiology/Procedures Radiology/Procedures [][facility] [address] [place], [place] [id number] IMAGING REPORT Signed PATIENT: TAD COLLINS ACCOUNT: [id number] : 1955 LOCATION: ER AGE: 63 SEX: M EXAM STATUS: REG ER ORD. PHYSICIAN: ELIEL RUBY APRN REASON: shortness of breath, cough PROCEDURE: CHEST PA & LATERAL AP and Lateral Views of the Chest 02/02/2019 12:00 AM Indication: Shortness of breath Comparison: 2 views of the chest December 13, 2018 Findings: No pneumothorax is seen. No definitive effusion is identified. Right basilar pleural thickening, calcification, and scarring appears to be similar to prior exam. No new focal consolidative infiltrate is identified radiographically. Bullous changes in the lung apices, right greater than left, similar. Heart size is mildly enlarged but similar. Lungs appear hyperinflated. No acute osseous changes are seen. IMPRESSION: Grossly stable radiographic appearance of the chest without evidence of acute cardiopulmonary process. Electronically signed by: Enoch Tafoya MD (02/02/2019 10:37 AM) [facility] DICTATED and SIGNED BY: ENOCH TAFOYA MD DATE: 02/02/19 1037 Course & Med Decision Making Course & Med Decision Making Pertinent Labs and Imaging studies reviewed. (See chart for details) Will get labs, chest x-ray, ekg, and give steroids/breathing treatment. labs, chest x-ray, and ekg are unremarkable. Patient has improved with steroids/breathing treatment. Will d/c home. Dragon Disclaimer Dragon Disclaimer This electronic medical record was generated, in whole or in part, using a voice recognition dictation system. Departure Departure Impression: Primary Impression: COPD exacerbation Additional Impression: Upper respiratory infection Disposition: HOME, SELF-CARE Condition: STABLE Referrals: GALA LANDA MD (PCP) Patient Instructions: Upper Respiratory Infection, Adult Additional Instructions: Thank you for visiting [facility]. We appreciate you trusting us with your care. If any additional problems come up don't hesitate to return to visit us. Please follow up with your primary care provider so they can plan additional care if needed and know about the problem that you had. If symptoms worsen come back to the Emergency Department. Any concerning symptoms that start such as chest pain, shortness of air, weakness or numbness on one side of the body, running high fevers or any other concerning symptoms return to the ER. Please take Zyrtec and Mucinex over the counter to help congestions symptoms. Scripts Methylprednisolone (MEDROL) 4 Mg Tab.ds.pk 1 PKG PO UD, #1 PKG Prov: ELIEL RUBY SILK WEAVER 02/02/19 Problem Qualifiers Additional Impression: Upper respiratory infection URI type: unspecified viral URI Qualified Codes: J06.9 - Acute upper res piratory infection, unspecified RUBYELIEL SILK WEAVER Feb 02, 2019 09:41
[2019-02-02] MEDS ORDERED: methylPREDNISolone SOD SUCC PF 125 MG/2 ML VIAL. IV ONE (09:45)
[2019-02-02] MEDS ORDERED: IPRATRPIUM/ALBUTEROL 0.5/2.5MG 3 ML NEBU. NEB ONE (09:45)
[2019-02-02 09:48] LABS: BASO % 1 % (0-3); EOS # 0.1 x10^3/uL (0.0-0.7); EOS % 2 % (0-3); HEMATOCRIT 39.3 % (39.0-53.0); HEMOGLOBIN 13.1 g/dL (13.0-17.5); LYMPH # 2.2 x10^3/uL (1.0-4.8); LYMPH % 54 % (24-48); MEAN CORPUSCULAR HEMOGLOBIN 32 pg (25-35); MEAN CORPUSCULAR HGB CONC 33 g/dL (31-37); MEAN CORPUSCULAR VOLUME 94 fL (79-100); MONO # 0.4 x10^3/uL (0.0-1.1); MONO % 10 % (0-9); NEUT # 1.3 x10^3/uL (1.8-7.7); NEUT % 32 % (31-73); PLATELET COUNT 221 x10^3/uL (140-400); RED BLOOD COUNT 4.17 x10^6/uL (4.30-5.70); RED CELL DISTRIBUTION WIDTH 14.8 % (11.5-14.5); WHITE BLOOD COUNT 4.1 x10^3/uL (4.0-11.0)
[2019-02-02 09:56] LABS: CALCIUM 8.6 mg/dL (8.5-10.1); CREATININE 1.2 mg/dL (0.7-1.3); GFR 74.2; POTASSIUM 4.3 mmol/L (3.5-5.1)
[2019-02-02 10:02] LABS: ALBUMIN 3.5 g/dL (3.4-5.0); TOTAL BILIRUBIN 0.5 mg/dL (0.2-1.0); TOTAL PROTEIN 6.9 g/dL (6.4-8.2)
--- NOTE | 2019-02-02 10:40 | RAD ---
AP and Lateral Views of the Chest 02/02/2019 12:00 AM Indication: Shortness of breath Comparison: 2 views of the chest December 13, 2018 Findings: No pneumothorax is seen. No definitive effusion is identified. Right basilar pleural thickening, calcification, and scarring appears to be similar to prior exam. No new focal consolidative infiltrate is identified radiographically. Bullous changes in the lung apices, right greater than left, similar. Heart size is mildly enlarged but similar. Lungs appear hyperinflated. No acute osseous changes are seen. IMPRESSION: Grossly stable radiographic appearance of the chest without evidence of acute cardiopulmonary process. Electronically signed by: Enoch Jefferson MD (02/02/2019 10:37 AM) [facility]
--- NOTE | 2019-02-02 11:04 | EKG ---
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
[2019-02-02 11:20] VITALS: BP 143/83
[2019-02-02] MEDS ORDERED: METH4TAB2 PO (11:30)
== END 2019-02-02 12:00 | disposition home or self-care (01) ==
LOC: ER 08:41
DX: J44.1 Chronic obstructive pulmonary disease with (acute) exacerbation (principal); J06.9 Acute upper respiratory infection, unspecified; I10 Essential (primary) hypertension; G89.29 Other chronic pain; F17.200 Nicotine dependence, unspecified, uncomplicated; Z88.0 Allergy status to penicillin
CPT/HCPCS: 36415; 71046; 80053; 85025; 93005; 94640; 96374; 99285; J2930; J7620

== ENCOUNTER 2019-02-08 17:42 | Emergency (ER) | payer MEDICAID ==
[~2019-02-08] VITALS: Ht 182.9 cm; Wt 72.6 kg
[2019-02-08] MEDS ORDERED: NITROGLYCERIN SUBLINGUAL 0.4 MG BOTTLE OF 25. SL PRN (18:30)
[2019-02-08] MEDS ORDERED: MORPHINE SULFATE 4 MG/ML VIAL. IV/SQ PRN (18:30)
[2019-02-08 18:33] LABS: BASO # 0.1 x10^3/uL (0.0-0.2); BASO % 1 % (0-3); EOS # 0.2 x10^3/uL (0.0-0.7); EOS % 5 % (0-3); HEMATOCRIT 42.7 % (39.0-53.0); HEMOGLOBIN 14.8 g/dL (13.0-17.5); LYMPH # 2.5 x10^3/uL (1.0-4.8); LYMPH % 53 % (24-48); MEAN CORPUSCULAR HEMOGLOBIN 32 pg (25-35); MEAN CORPUSCULAR HGB CONC 35 g/dL (31-37); MEAN CORPUSCULAR VOLUME 93 fL (79-100); MONO # 0.4 x10^3/uL (0.0-1.1); MONO % 9 % (0-9); NEUT # 1.4 x10^3/uL (1.8-7.7); NEUT % 31 % (31-73); PLATELET COUNT 275 x10^3/uL (140-400); RED BLOOD COUNT 4.59 x10^6/uL (4.30-5.70); RED CELL DISTRIBUTION WIDTH 14.4 % (11.5-14.5); WHITE BLOOD COUNT 4.6 x10^3/uL (4.0-11.0)
[2019-02-08 18:43] LABS: CALCIUM 9.3 mg/dL (8.5-10.1); CREATININE 1.5 mg/dL (0.7-1.3); GFR 57.4; POTASSIUM 3.8 mmol/L (3.5-5.1)
[2019-02-08] MEDS ORDERED: BENZONATATE 100 MG CAPSULE. PO ONE (18:45)
[2019-02-08] MEDS ORDERED: methylPREDNISolone SOD SUCC PF 125 MG/2 ML VIAL. IV ONE (18:45)
[2019-02-08] MEDS ORDERED: IPRATRPIUM/ALBUTEROL 0.5/2.5MG 3 ML NEBU. NEB ONE (18:45)
[2019-02-08 18:49] LABS: ALBUMIN/GLOBULIN RATIO 1.2 (1.0-1.7); MAGNESIUM 2.1 mg/dL (1.8-2.4); TOTAL BILIRUBIN 0.4 mg/dL (0.2-1.0); TOTAL PROTEIN 7.4 g/dL (6.4-8.2)
[2019-02-08 19:27] LABS: BILIRUBIN,URINE NEGATIVE (NEG); CLARITY,URINE CLEAR; COLOR,URINE YELLOW; NITRITE,URINE NEGATIVE (NEG); PROTEIN,URINE NEGATIVE (NEG-TRACE)
[2019-02-08 19:35] LABS: AMPHETAMINE/METHAMPHETAMINE NEG (NEG); BARBITURATES NEG (NEG); BENZODIAZEPINES NEG (NEG); CANNABINOIDS POS (NEG); COCAINE POS (NEG); METHADONE NEG (NEG); OPIATES NEG (NEG); PHENCYCLIDINE NEG (NEG)
[2019-02-08 19:39] LABS: BACTERIA,URINE 0 /HPF (0-FEW); RBC,URINE 0 /HPF (0-2); SQUAMOUS EPITHELIAL CELL,UR OCC /LPF
[2019-02-08 19:44] VITALS: BP 119/74
--- NOTE | 2019-02-08 19:48 | PHYS DOC ---
Past Medical History Past Medical History: Asthma, COPD, Hypertension, Other Additional Past Medical Histor: chronic Lt.shoulder pain;substance abuse (TULIO POST APRN) Past Surgical History: Other Additional Past Surgical Histo: hernia,R middle finger,lt.knee,L FINGER (TULIO POST APRN) Additional Information: 0.25 PPD Alcohol Use: Rarely Drug Use: Cocaine, Marijuana (TULIO POST APRN) Adult General Chief Complaint Chief Complaint: SHORTNESS OF BREATH HPI HPI Patient is a 63 year old male with history of asthma, COPD, hypertension, current smoker, who presents to the ED today complaining of cough, nasal c ongestion, shortness of breath, symptoms began 3 weeks ago. Patient denies any fever. He states he was seen in the ED 6 days ago for the same complaints. (TULIO POST APRN) Review of Systems Review of Systems Constitutional: Denies fever or chills [] Eyes: Denies change in visual acuity, redness, or eye pain [] HENT: Reports nasal congestion, denies sore throat [] Respiratory: Reports cough and shortness of breath Cardiovascular: No additional information not addressed in HPI [] GI: Denies abdominal pain, nausea, vomiting, bloody stools or diarrhea [] : Denies dysuria or hematuria [] Musculoskeletal: Denies back pain or joint pain [] Integument: Denies rash or skin lesions [] Neurologic: Denies headache, focal weakness or sensory changes [] All other systems were reviewed and found to be within normal limits, except as documented in this note. (TULIO POST APRN) Current Medications Current Medications Current Medications Medications (Trade) Dose Ordered Sig/Bertha Start Time Stop Time Status Last Admin Dose Admin Albuterol/ Ipratropium (Duoneb) 3 ml 1X ONCE 02/08/19 18:45 02/08/19 18:46 DC 02/08/19 18:37 3 ML Benzonatate (Tessalon Perle) 100 mg 1X ONCE 02/08/19 18:45 02/08/19 18:46 DC 02/08/19 18:30 100 MG Methylprednisolone Sodium Succinate (SOLU-Medrol 125MG VIAL) 125 mg 1X ONCE 02/08/19 18:45 02/08/19 18:46 DC 02/08/19 18:30 125 MG Morphine Sulfate (Morphine Sulfate) 4 mg PRN Q15MIN PRN 02/08/19 18:30 02/08/19 19:57 DC Nitroglycerin (Nitrostat) 0.4 mg PRN Q5MIN PRN 02/08/19 18:30 02/08/19 19:57 DC (ELIEL KOO DO) Allergies Allergies Allergies Coded Allergies Type Severity Reaction Last Updated Verified Penicillins Allergy Severe SOB/STOPS BREATHING 03/19/15 Yes (ELIEL KOO DO) Physical Exam Physical Exam Constitutional: Well developed, well nourished, no acute distress, non-toxic appearance. [] HENT: Normocephalic, atraumatic, bilateral external ears normal, oropharynx moist, no oral exudates, nose normal. [] Eyes: PERRLA, EOMI, conjunctiva normal, no discharge. [] Neck: Normal range of motion, no tenderness, supple, no stridor. [] Cardiovascular:Heart rate regular rhythm, no murmur [] Lungs & Thorax: Bilateral breath sounds clear to auscultation [] Abdomen: Bowel sounds normal, soft, no tenderness, no masses, no pulsatile masses. [] Skin: Warm, dry, no erythema, no rash. [] Back: No tenderness, no CVA tenderness. [] Extremities: No tenderness, no cyanosis, no clubbing, ROM intact, no edema. [] Neurologic: Alert and oriented X 3, normal motor function, normal sensory function, no focal deficits noted. [] Psychologic: Affect normal, judgement normal, mood normal. [] (TULIO POST APRN) Current Patient Data Vital Signs Vital Signs Date Time Temp Pulse Resp B/P (MAP) Pulse Ox O2 Delivery O2 Flow Rate FiO2 02/08/19 19:44 82 16 119/74 (89) 96 Room Air 02/08/19 18:10 97.8 97.8 (ELIEL KOO DO) Lab Values Laboratory Tests Test 02/08/19 18:25 02/08/19 19:20 White Blood Count 4.6 x10^3/uL (4.0-11.0) Red Blood Count 4.59 x10^6/uL (4.30-5.70) Hemoglobin 14.8 g/dL (13.0-17.5) Hematocrit 42.7 % (39.0-53.0) Mean Corpuscular Volume 93 fL (79-100) Mean Corpuscular Hemoglobin 32 pg (25-35) Mean Corpuscular Hemoglobin Concent 35 g/dL (31-37) Red Cell Distribution Width 14.4 % (11.5-14.5) Platelet Count 275 x10^3/uL (140-400) Neutrophils (%) (Auto) 31 % (31-73) Lymphocytes (%) (Auto) 53 % (24-48) H Monocytes (%) (Auto) 9 % (0-9) Eosinophils (%) (Auto) 5 % (0-3) H Basophils (%) (Auto) 1 % (0-3) Neutrophils # (Auto) 1.4 x10^3/uL (1.8-7.7) L Lymphocytes # (Auto) 2.5 x10^3/uL (1.0-4.8) Monocytes # (Auto) 0.4 x10^3/uL (0.0-1.1) Eosinophils # (Auto) 0.2 x10^3/uL (0.0-0.7) Basophils # (Auto) 0.1 x10^3/uL (0.0-0.2) Sodium Level 139 mmol/L (136-145) Potassium Level 3.8 mmol/L (3.5-5.1) Chloride Level 100 mmol/L (98-107) Carbon Dioxide Level 31 mmol/L (21-32) Anion Gap 8 (6-14) Blood Urea Nitrogen 25 mg/dL (8-26) Creatinine 1.5 mg/dL (0.7-1.3) H Estimated GFR (Cockcroft-Gault) 57.4 BUN/Creatinine Ratio 17 (6-20) Glucose Level 93 mg/dL (70-99) Calcium Level 9.3 mg/dL (8.5-10.1) Magnesium Level 2.1 mg/dL (1.8-2.4) Total Bilirubin 0.4 mg/dL (0.2-1.0) Aspartate Amino Transferase (AST) 12 U/L (15-37) L Alanine Aminotransferase (ALT) 14 U/L (16-63) L Alkaline Phosphatase 108 U/L (46-116) Creatine Kinase 109 U/L (39-308) Creatine Kinase MB (Mass) 1.4 ng/mL (0.0-3.6) Creatine Kinase MB Relative Index 1.3 % (0-4) Troponin I Quantitative < 0.017 ng/mL (0.000-0.055) [id number]-Type Natriuretic Peptide 11 pg/mL (0-124) Total Protein 7.4 g/dL (6.4-8.2) Albumin 4.0 g/dL (3.4-5.0) Albumin/Globulin Ratio 1.2 (1.0-1.7) Thyroid Stimulating Hormone (TSH) 0.449 uIU/mL (0.358-3.74) Urine Collection Type Unknown Urine Color Yellow Urine Clarity Clear Urine pH 6.0 Urine Specific [place] 1.010 Urine Protein Negative mg/dL (NEG-TRACE) Urine Glucose (UA) Negative mg/dL (NEG) Urine Ketones (Stick) Negative mg/dL (NEG) Urine Blood Negative (NEG) Urine Nitrite Negative (NEG) Urine Bilirubin Negative (NEG) Urine Urobilinogen Dipstick 1.0 mg/dL (0.2 mg/dL) Urine Leukocyte Esterase Negative (NEG) Urine RBC 0 /HPF (0-2) Urine WBC 1-4 /HPF (0-4) Urine Squamous Epithelial Cells Occ /LPF Urine Bacteria 0 /HPF (0-FEW) Urine Opiates Screen Neg (NEG) Urine Methadone Screen Neg (NEG) Urine Barbiturates Neg (NEG) Urine Phencyclidine Screen Neg (NEG) Urine Amphetamine/Methamphetamine Neg (NEG) Urine Benzodiazepines Screen Neg (NEG) Urine Cocaine Screen Pos (NEG) Urine Cannabinoids Screen Pos (NEG) Urine Ethyl Alcohol Neg (NEG) Laboratory Tests 02/08/19 18:25 Laboratory Tests 02/08/19 18:25 (ELIEL KOO DO) EKG EKG 1815 Interpreted by sinus rhythm HR 68 no STEMI[] (TULIO POST APRN) Radiology/Procedures Radiology/Procedures [] (TULIO POST APRN) Course & Med Decision Making Course & Med Decision Making Pertinent Labs and Imaging studies reviewed. (See chart for details) This is a 63-year-old male patient with history of COPD current smoker who presents to the ED today with cough and nasal congestion and shortness of breath that began 3 weeks ago. Patient was seen in the ED 6 days ago for the same complaints. Chest x-ray is negative for any acute findings. Lungs are clear. CBC with a normal WBC was CMP with creatinine of 1.5 BUN is normal-patient was encouraged to push fluids. He is requesting to go home. Encouraged to consider smoking cessation, continue breathing treatments at home and follow-up with his own PCP in the course of this week. He was given Medrol Dosepak 6 days ago. (TULIO POST APRN) Dragon Disclaimer Dragon Disclaimer This electronic medical record was generated, in whole or in part, using a voice recognition dictation system. (TULIO POST APRN) Departure Departure Impression: Primary Impression: COPD exacerbation Additional Impressions: Upper respiratory infection Renal insufficiency Smoking addiction Disposition: HOME, SELF-CARE Condition: STABLE Referrals: GALA LANDA MD (PCP) follow up in on one week Patient Instructions: Chronic Obstructive Pulmonary Disease Exacerbation Additional Instructions: Please follow up with your doctor in one week Attending Signature Attending Signature I have reviewed the PA/ACTIVITIES THERAPIST's note and plan of care. I was available for consultation as needed during the patient's visit in the emergency department. I agree with the clinical impression, plan, and disposition. (ELIEL KOO DO) Problem Qualifiers Additional Impressions: Upper respiratory infection URI type: unspecified URI Qualified Codes: J06.9 - Acute upper respiratory infection, unspecified TULIO POST APRN Feb 08, 2019 19:48 ELIEL KOO DO Feb 10, 2019 05:00
--- NOTE | 2019-02-08 23:59 | RAD ---
Exam: Chest one view INDICATION: Shortness of breath TECHNIQUE: Frontal view of the chest Comparisons: 02/02/2019 FINDINGS: The cardiomediastinal silhouette and pulmonary vessels are within normal limits. The lung and pleural spaces are clear. IMPRESSION: No acute cardiopulmonary process. Electronically signed by: Kiko Freeman MD (02/08/2019 11:56 PM) [facility] [facility]
--- NOTE | 2019-02-09 06:03 | EKG ---
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
== END 2019-02-08 19:54 | disposition home or self-care (01) ==
LOC: ER 17:42
DX: J44.1 Chronic obstructive pulmonary disease with (acute) exacerbation (principal); F17.200 Nicotine dependence, unspecified, uncomplicated; N28.9 Disorder of kidney and ureter, unspecified; I10 Essential (primary) hypertension; Z88.0 Allergy status to penicillin
CPT/HCPCS: 36415; 71045; 80053; 80307; 81001; 82553; 83735; 83880; 84443; 84484; 85025; 93005; 94640; 96374; 99285; J2930; J7620